=== PATIENT | female | born 1990 | race Caucasian/White ===

== ENCOUNTER → 2016-11-13 | Outpatient (CLI) | payer OTHER ==
[~2016-11-13] MED LIST: ACET-1256 PO; LEVO112T4 PO; PEDICHW50 PO; XNX25
--- NOTE | 2016-11-13 10:49 | Discharge Instructions ---
Discharge Instructions Procedure Procedure Date: Nov 13, 2016. Reason for visit: Thyroid Nodule. Discharge Discharge Date: Nov 13, 2016. Discharge Diagnosis: same Instructions Activity Recommendations: No limitations Return to School/Work: no limitations Recommended Home Diet: Resume Previous Diet Provider Instructions: ACTIVITY RECOMMENDATIONS: * Rest today. * Resume regular activity in one day. MEDICATIONS: * May take Tylenol or Ibuprofen as needed for pain. DIET: * Resume previous diet. SPECIAL CARE INSTRUCTIONS: Call your doctor if: * Temperature above 101 degrees F. * Pain not relieved by pain medicine ordered. * Increased drainage or redness from incision. * Notify your doctor with any questions or concerns. Call your doctor or go to the nearest Emergency Department if you experience: * Increased chest pain or shortness of breath. FOLLOW UP VISIT: Follow-up with Referring Physician as scheduled. Allergies Coded Allergies: Cephalosporins (Verified Allergy, Intermediate, RASH or N/V, 08/12/16) Latex (Verified Allergy, Mild, RASH, 08/12/16) Penicillins (Verified Allergy, Mild, Rash or N/V, 08/12/16) Antonio Kemp Recommendations: Call your doctor if: * Temperature above 101 degrees * Pain not relieved by pain medicine ordered * There is increased drainage or redness from any incision * You have any unanswered questions or concerns. Your Doctors Instructions noted above were prepared by provider Skip Benavides. Patient Signature Section: Patient Instructions Signature Page Isaura Louis Patient (or Guardian) Signature/Date: I have read and understand the instructions given to me by my caregivers. Caregiver/RN/Doctor Signature/Date: The above-named patient and/or guardian has received patient instructions on this date. + Original Patient Signature Page (only) stays with chart. Please make copy for patient.
--- NOTE | 2016-11-13 11:02 | DIAGNOSTIC IMAGING REPORT ---
ULTRASOUND-GUIDED FINE-NEEDLE ASPIRATION OF A LEFT ISTHMUS THYROID NODULE HISTORY: Left thyroid nodule. E04.1 Thyroid nodule COMPARISON: Thyroid ultrasound 03/25/2016 PROCEDURE: Written informed consent was obtained. The neck was prepped and draped in the usual sterile fashion. 1% lidocaine was used for local anesthesia. A total of 2 passes using a 25-gauge needle were made through left isthmus thyroid nodule under ultrasound guidance. Note, the nodule has decreased in size and currently measures 1 cm. Specimens were given to the on-site pathologist who determined adequate tissue for diagnosis. The patient tolerated the procedure well. There were no immediate locations. IMPRESSION: Successful ultrasound-guided fine-needle aspiration of a left isthmus thyroid nodule. Electronically signed by: Skip Benavides M.D. 11/13/2016 11:00 AM Dictated Date/Time: 11/13/2016 10:59 AM
== END | disposition home or self-care (01) ==
LOC: C.ULTR 09:33
PROVIDERS: ATTEND Internal Medicine Endocrinology, Diabetes & Metabolism
DX: E04.1 Nontoxic single thyroid nodule (principal)

== ENCOUNTER 2017-02-24 06:56 | Inpatient (IN) | payer OTHER ==
[2017-01-27 09:42] VITALS: BMI 36.0
[2017-01-27 10:24] LABS: BASO % 0.4 %; BASO ABS # 0.02 K/uL (0-0.2); COMPLETE YES; EOS % 0.7 %; HEMATOCRIT 40.8 % (37-47); IG% 0.2 %; LYMPH % 45.4 %; LYMPH ABS # 2.53 K/uL (1.2-3.4); MEAN CELL VOLUME 86.4 fL (80-100); MEAN CORPUSCULAR HEMOGLOBIN 29.4 pg (25-34); MEAN CORPUSCULAR HGB CONC 34.1 g/dl (32-36); MEAN PLATELET VOLUME 11.4 fL (7.4-10.4); MONO % 6.6 %; NEUT % 46.7 %; PLATELET COUNT 233 K/uL (130-400); RED BLOOD COUNT 4.72 M/uL (4.2-5.4); WHITE BLOOD COUNT 5.57 K/uL (4.8-10.8)
[2017-01-27 10:56] LABS: BUN/CREATININE RATIO 14.3 (10-20); CALCIUM 9.1 mg/dl (8.5-10.1); CREATININE 0.79 mg/dl (0.60-1.20); POTASSIUM 4.1 mmol/L (3.5-5.1)
[2017-02-24] VITALS (7 sets, daily range): BP systolic 118–163; BP diastolic 71–85; PULSE 56–97; TEMP 36.5–36.8; O2SAT 97–99; Ht 177.8 cm; Wt 115.0 kg
[~2017-02-24] VITALS: Ht 177.8 cm; Wt 115.0 kg
[~2017-02-24 06:56] MED LIST changes: +ACETAMINOPHEN 1000 MG/100 ML IV IV ONE; +CLINDAMYCIN IV 900 MG in DEXTROSE 5% ADD-VANTAGE 100ML 100 ML IV SCH; +DEXAMETHASONE SOD INJ 4 MG/ML VIAL ONE; +FENTANYL CITRATE INJ 50 MCG/1 ML 2 ML VIAL ONE; +GLYCOPYRROLATE INJ 0.2 MG/ML VIAL ONE; +LACTATED RINGER'S 1000ML 1,000 ML IV SCH; -LEVO112T4 PO; +LIDOCAINE HCL 2% 2 ML VIAL (20MG/ML) ONE; +MIDAZOLAM HCL 1 MG/ML 2ML VIAL ONE; +NEOSTIGMINE METHYLSULFATE 5 MG/5 ML SYR ONE; +ONDANSETRON INJ 2 MG/ML 2 ML VIAL ONE; -PEDICHW50 PO; +PROPOFOL IV EMULSION 10 MG/ML 20 ML VIAL IV ONE; +ROCURONIUM BROMIDE 10 MG/ML 5 ML VIAL ONE; +SUCCINYLCHOLINE CHLORIDE 20 MG/ML 10 ML VIAL IV ONE; -XNX25
[2017-02-24] MEDS ORDERED: XNX25 (07:07)
--- NOTE | 2017-02-24 07:10 | History & Physical Bridge Note ---
H&P Re-Evaluation Bridge Note: I have examined the patient, reviewed the History & Physical and in the interval since the performance of the History & Physical I have noted the following changes of clinical significance: No changes noted
--- NOTE | 2017-02-24 07:12 | History and Physical ---
History & Physical Date Feb 24, 2017. Chief Complaint SUSPICIOUS THYROID ISTHMUS NODULE History of Present Illness The patient is a 26 year old female with complaints of 1.7CM SOLID THYROID ISTHMUS NODULE WITH FNA SHOWING SUSPICIOUS FOLLICULAR LESION. Past Medical/Surgical History Medical Problems: (1) Vaginal bleeding during , antepartum PSH: S/P Additional History Hepatic Disease: No Endocrine Disorder: No Kidney Disease: No Hypertension: No Heart Disease: No Bleeding Tendencies: No Infectious Diseases: No Allergies Coded Allergies: Cephalosporins (Verified Allergy, Intermediate, RASH or N/V, 02/24/17) Latex (Verified Allergy, Mild, RASH, 02/24/17) Penicillins (Verified Allergy, Mild, Rash or N/V, 02/24/17) Home Medications Scheduled Acetaminophen (Tylenol), 1,000 MG PO PRN Miscellaneous Medications Alprazolam (Alprazolam) Physical Examination Skin: warm/dry, no rash Eyes: normal inspection, EOMI, sclerae normal ENT: normal ENT inspection, pharynx normal Head: normocephalic, atraumatic Neck: supple, no adenopathy, trachea midline Respiratory/Chest: lungs clear, normal breath sounds, no respiratory distress Cardiovascular: regular rate, rhythm, no edema, no murmur Diagnosis SUSPICIOUS THYROID ISTHMUS NODULE Plan of Treatment TOTAL THYROIDECTOMY
[2017-02-24] MEDS ORDERED: LIDOCAINE/EPINEPHRINE 1% 20 ML VIAL ONE (07:38)
[2017-02-24] MEDS ORDERED: THROMBIN 5000 UNITS KIT ONE (07:38)
[2017-02-24] MEDS ORDERED: BACITRACIN OINT 15 GM TUBE ONE (07:39)
[2017-02-24 07:43] LABS: PREG INTERNAL NEGATIVE QC NEG CLEAR BACKGROUND; PREG INTERNAL POSITIVE QC POS CONTROL LINE
[2017-02-24] MEDS ORDERED: FENTANYL CITRATE INJ 50 MCG/1 ML 2 ML VIAL ONE (08:31)
[2017-02-24] MEDS ORDERED: ONDANSETRON INJ 2 MG/ML 2 ML VIAL ONE ×2 (08:47→11:00)
[2017-02-24] MEDS ORDERED: ROCURONIUM BROMIDE 10 MG/ML 5 ML VIAL ONE (08:47)
[2017-02-24] MEDS ORDERED: EpHEDrine SULFATE 50MG/5ML SYR ONE (08:56)
[2017-02-24] MEDS ORDERED: SURGICEL ABSORB HEMOSTAT 2IN X 14IN TOP ONE (09:56)
[2017-02-24] MEDS ORDERED: LACTATED RINGER'S 1000ML 1,000 ML IV SCH (10:02)
--- NOTE | 2017-02-24 10:02 | [facility] Operative Report ---
Operative Report Operative Date Feb 24, 2017. Pre-Operative Diagnosis Suspicious Thyroid Isthmus Nodule Post-Operative Diagnosis SAME Procedure(s) Performed TOTAL THYROIDECTOMY Surgeon Dr. Neal Cage Air Intercept Controller Surgeon(s) Marina Casey PA-C Estimated Blood Loss 10ML Findings ~1.7CM THYROID ISTHMUS NODULE; MILD MULTINODULAR GOITER Specimens A: Thyroid- double stitch- right superior pole; single stitch- left superior pole. I attest to the content of the Intraoperative Record and any orders documented therein. Any exceptions are noted below.
--- NOTE | 2017-02-24 10:10 | Discharge Instructions ---
Discharge Instructions Date of Service Feb 24, 2017. Admission Reason for Admission: Thyroid Nodule Discharge Discharge Diagnosis / Problem: SAME Discharge Goals Goal(s): Therapeutic intervention Activity Recommendations Activity Limitations: as noted below 1. LIGHT ACTIVITY FOR 2WEEKS 2. NO DRIVING WHILE ON [place] 3. KEEP INCISION DRY FOR 1WEEK . Current Hospital Diet Patient's current hospital diet: Discharge Diet Recommended Diet: Regular Diet Procedures Procedures Performed: Total Thyroidectomy Pending Studies Studies pending at discharge: no Medical Emergencies . Who to Call and When: Medical Emergencies: If at any time you feel your situation is an emergency, please call 911 immediately. . Non-Emergent Contact Non-Emergency issues call your: Surgeon . . "Provider Documentation" section prepared by Neal Cage. . VTE Core Measure Inpt VTE Proph given/why not?: SCD's
[2017-02-24] MEDS ORDERED: ONDANSETRON INJ 2 MG/ML 2 ML VIAL IV PRN ×2 (10:15→10:45)
[2017-02-24] MEDS ORDERED: HYDROmorphone INJ 1 MG/ML SYR IV PRN (10:45)
[2017-02-24] MEDS ORDERED: FLUMAZENIL 0.1 MG/1 ML 10 ML VIAL IV PRN (10:45)
[2017-02-24] MEDS ORDERED: EpHEDrine SULFATE INJ 50 MG/ML AMP IV PRN (10:45)
[2017-02-24] MEDS ORDERED: LABETALOL HCL IV 5 MG/ML 20ML IV PRN (10:45)
[2017-02-24] MEDS ORDERED: PROMETHAZINE HCL INJ 12.5 MG in SODIUM CHLORIDE 0.9% 50ML 50 ML IV PRN (10:45)
[2017-02-24] MEDS ORDERED: ATROPINE SULFATE 0.1 MG/ML 5ML SYR IV PRN (10:45)
[2017-02-24] MEDS ORDERED: NALOXONE HCL 0.4 MG/1 ML VIAL/CARP IV PRN (10:45)
[2017-02-24] MEDS ORDERED: HYDROmorphone INJ 1 MG/ML SYR ONE (10:51)
--- NOTE | 2017-02-24 10:53 | OPERATIVE REPORT ---
DATE OF OPERATION: 02/24/2017 PREOPERATIVE DIAGNOSIS: Suspicious thyroid isthmus nodule. POSTOPERATIVE DIAGNOSIS: Suspicious thyroid isthmus nodule. PROCEDURE: Total thyroidectomy. SURGEON: Neal Cage M.D. MONEY POSITION OFFICER: Marina Casey PA-C. ESTIMATED BLOOD LOSS: 10 mL. FINDINGS: Soft approximately 1.7 cm thyroid isthmus nodule. SPECIMENS: Total thyroidectomy for permanent pathologic specimen. DRAINS: None. COMPLICATIONS: None. INDICATIONS FOR THE PROCEDURE: The patient is a 26-year-old female who was found to have an enlarging thyroid nodule while and for which a fine needle aspiration biopsy showed a follicular lesion with the inability to tell whether or not it was an adenoma versus carcinoma. There were some atypical cells. Thyroid surgery was recommended. After discussing all the options with the patient, she opted for total thyroidectomy. She presents for the above-mentioned procedure on an inpatient elective basis. DESCRIPTION OF PROCEDURE: After informed consent had been obtained from the patient, the patient was wheeled in the operating room and placed on the operating table in the supine position. Monitors were placed. After induction of general endotracheal anesthesia with a size 7 nerve integrity monitor endotracheal tube the patient's head and neck were gently extended and the marking pen was used to outline the planned 6 cm incision in the natural skin crease 2 fingerbreadths above the level of clavicles. A total of 3 mL of 1% lidocaine with 1:100,000 epinephrine was used to inject the skin and subcutaneous tissues overlying the planned incision site. The skin of the neck and chest were then prepped and draped in usual sterile fashion. A #15 scalpel was then used to make the incision through the skin, subcutaneous tissue, and platysma. Subplatysmal flaps were raised superiorly to the level of thyroid notch and inferiorly to the level of the clavicles. The median raphe of the strap muscles was divided using Bovie electrocautery. The strap muscles were retracted laterally and the right thyroid lobe was first addressed. The middle thyroid vein as well as superior and inferior thyroid vascular pedicles were divided adjacent to the thyroid capsule using a Harmonic scalpel. Dissection was carried lateral to medial with care to identify and preserve a candidate for the right recurrent laryngeal nerve as well as superior and inferior parathyroid glands. The left side was then addressed in a similar fashion. The thyroid gland was from the trachea at Martinez's ligament using a Harmonic scalpel. Of note, the dissection was quite difficult and there was some dense fibrosis involving the lateral aspect of the thyroid lobes near the areas of the recurrent laryngeal nerves, especially on the left hand side. Orienting sutures were placed on the thyroidectomy specimen which was sent off for permanent pathological assessment. The wound was copiously irrigated and suctioned. Bipolar electrocautery was used to achieve adequate hemostasis. Hemostasis was confirmed with a Valsalva maneuver. Small pieces of Surgicel were placed in the bilateral tracheoesophageal grooves followed by topical spray thrombin. The strap muscles were then reapproximated in the midline using a simple running interlocked 3-0 Vicryl suture. The platysma was then closed with several deep 4-0 Monocryl sutures. The skin was then closed with a simple running subcuticular 5-0 Monocryl suture. The incision was cleansed and dried. Dermabond was applied to the incision. This marked the end of the case. The patient tolerated the procedure well. There were no apparent complications. The patient was extubated and transferred to recovery room in stable condition. I attest to the content of the Intraoperative Record and any orders documented therein. Any exceptio ns are noted below.
--- NOTE | 2017-02-24 11:15 | Anesthesiology Progress Note ---
Anesthesia Post Op Note Date & Time Feb 24, 2017 at 11:14 Vital Signs Pain Intensity: 4 Vital Signs Past 12 Hours Date Time Temp Pulse Resp B/P Pulse Ox O2 Delivery O2 Flow Rate FiO2 02/24/17 11:10 72 19 126/68 95 Room Air 02/24/17 11:00 85 19 126/67 95 Room Air 02/24/17 10:50 80 22 129/77 97 Mask 10 02/24/17 10:40 74 18 151/85 100 Mask 10 02/24/17 10:31 36.3 77 17 154/79 99 Mask 10 02/24/17 07:09 36.7 97 20 163/85 99 Room Air Notes Mental Status: alert / awake / arousable, participated in evaluation Pt Amnestic to Procedure: Yes Nausea / Vomiting: adequately controlled Pain: adequately controlled Airway Patency, RR, SpO2: stable & adequate BP & HR: stable & adequate Hydration State: stable & adequate Anesthetic Complications: no major complications apparent
[2017-02-24] MEDS: HYDROCODONE/ACETAMOPHEN 5/325MG TAB PO PRN ×2 (15:45→17:10)
[2017-02-24] MEDS ORDERED: ALPRAZOLAM 0.25 MG TAB PO PRN (16:00)
[2017-02-24 16:26] LABS: MAGNESIUM 2.2 mg/dl (1.8-2.4); PHOSPHORUS 3.1 mg/dl (2.5-4.9)
[2017-02-24] MEDS ORDERED: NURSING VERBAL MED ORDER ONE (19:00)
[2017-02-24 22:40] LABS: CALCIUM 9.3 mg/dl (8.5-10.1); MAGNESIUM 2.1 mg/dl (1.8-2.4); PHOSPHORUS 3.4 mg/dl (2.5-4.9)
[2017-02-25 00:03] VITALS: BP 137/81; PULSE 76; TEMP 36.8; O2SAT 100
[2017-02-25] MEDS: HYDROCODONE/ACETAMOPHEN 5/325MG TAB PO PRN ×3 (00:04→08:33)
[2017-02-25 04:00] VITALS: BP 112/66; PULSE 65; TEMP 36.8; O2SAT 98
[2017-02-25 04:56] LABS: CALCIUM 8.9 mg/dl (8.5-10.1); MAGNESIUM 2.2 mg/dl (1.8-2.4); PHOSPHORUS 4.4 mg/dl (2.5-4.9)
[2017-02-25] MEDS ORDERED: LEVOTHYROXINE 175 MCG TAB PO SCH (06:00)
[2017-02-25 07:00] VITALS: BP 106/68; PULSE 56; TEMP 36.6; O2SAT 99
--- NOTE | 2017-02-25 07:06 | ENT PROGRESS NOTE ---
DATE: 02/25/2017 The patient is postoperative day #1 status post total thyroidectomy for a suspicious thyroid nodule. She has had no postoperative problems. She did complain of some right hand tingling yesterday, but all of her laboratory examinations have been unremarkable. Her calcium has ranged from 8.9-9.3. She is currently asymptomatic. She is not having much pain. She has a normal voice and is tolerating her diet. She is afebrile and her vital signs are stable. Her voice is normal. Her incision is clean, dry and intact, with no evidence of hematoma. The patient will be discharged to home. Follow up in the office next Wednesday for incision check and pathology review.
--- NOTE | 2017-02-25 07:09 | DISCHARGE SUMMARY ---
ADMISSION DIAGNOSIS: Suspicious thyroid nodule. DISCHARGE DIAGNOSIS: Suspicious thyroid nodule status post total thyroidectomy. HOSPITAL COURSE: The patient is a 26-year-old female who underwent total thyroidectomy on 02/24/2017 for suspicious thyroid isthmus nodule. Postoperatively she had no complications and was discharged to home on postoperative day 1 with new medications of [place] 5 mg/325 mg 1-2 tabs p.o. q.4h p.r.n. with 40 tablets given as well as Synthroid 175 mcg every morning. She is to followup in my office next Wednesday. She should call the office if she develops any numbness or tingling around her lips, fingers, or toes and/or involuntary muscle spasms or cramps. She is to keep her incision dry for one week.
[2017-02-25 07:35] VITALS: BP 112/66; PULSE 65; TEMP 36.8; O2SAT 98
== END 2017-02-25 10:10 | disposition home or self-care (01) | DRG 627 ==
LOC: ENRESERVDT → ENRESERVTM → C.ACU 06:56 → C.MSW 10:08
PROC: 0GTK0ZZ Resection of Thyroid Gland, Open Approach (ICD-10-PCS; principal; 2017-02-24 07:15)
DX: E04.2 Nontoxic multinodular goiter (principal); R20.2 Paresthesia of skin; F41.9 Anxiety disorder, unspecified; E66.9 Obesity, unspecified; Z68.36 Body mass index [BMI] 36.0-36.9, adult; Z87.891 Personal history of nicotine dependence; Z79.899 Other long term (current) drug therapy

== ENCOUNTER → 2017-03-02 | Outpatient (CLI) | payer OTHER ==
[~2017-03-02] MED LIST changes: -ACETAMINOPHEN 1000 MG/100 ML IV IV ONE; -CLINDAMYCIN IV 900 MG in DEXTROSE 5% ADD-VANTAGE 100ML 100 ML IV SCH; -DEXAMETHASONE SOD INJ 4 MG/ML VIAL ONE; -FENTANYL CITRATE INJ 50 MCG/1 ML 2 ML VIAL ONE; -GLYCOPYRROLATE INJ 0.2 MG/ML VIAL ONE; -LACTATED RINGER'S 1000ML 1,000 ML IV SCH; +LEVO112T4 PO; -LIDOCAINE HCL 2% 2 ML VIAL (20MG/ML) ONE; -MIDAZOLAM HCL 1 MG/ML 2ML VIAL ONE; -NEOSTIGMINE METHYLSULFATE 5 MG/5 ML SYR ONE; -ONDANSETRON INJ 2 MG/ML 2 ML VIAL ONE; -PROPOFOL IV EMULSION 10 MG/ML 20 ML VIAL IV ONE; -ROCURONIUM BROMIDE 10 MG/ML 5 ML VIAL ONE; -SUCCINYLCHOLINE CHLORIDE 20 MG/ML 10 ML VIAL IV ONE; +XNX25
[2017-03-02 17:20] LABS: ALKALINE PHOSPHATASE 102 U/L (45-117); ALT/SGPT 29 U/L (12-78); AST/SGOT 11 U/L (15-37); BLOOD UREA NITROGEN 10 mg/dl (7-18); BUN/CREATININE RATIO 12.3 (10-20); CARBON DIOXIDE 27 mmol/L (21-32); CHLORIDE 107 mmol/L (98-107); CREATININE 0.78 mg/dl (0.60-1.20); GLUCOSE 91 mg/dl (70-99); SODIUM 141 mmol/L (136-145)
[2017-03-02 17:31] LABS: ALB/GLOB RATIO 1.1 (0.9-2)
== END | disposition home or self-care (01) ==
LOC: C.LAB1850 15:41
PROVIDERS: ATTEND Physician Assistant
DX: E04.1 Nontoxic single thyroid nodule (principal); R07.89 Other chest pain

== ENCOUNTER → 2017-04-27 | Outpatient (CLI) | payer OTHER ==
[2017-04-27 13:56] LABS: THYROID STIMULATING HORMONE 0.011 uIu/ml (0.300-4.500)
== END | disposition home or self-care (01) ==
LOC: C.LAB1850 12:28
PROVIDERS: ATTEND Internal Medicine Endocrinology, Diabetes & Metabolism
DX: E89.0 Postprocedural hypothyroidism (principal)

== ENCOUNTER 2017-04-30 09:57 | Emergency (ER) | payer OTHER ==
[~2017-04-30] VITALS: Ht 177.8 cm; Wt 104.6 kg
[~2017-04-30 09:57] MED LIST changes: -LEVO112T4 PO
[2017-04-30 09:58] VITALS: TEMP 37; Ht 177.8 cm; Wt 104.6 kg
[2017-04-30 10:47] LABS: BASO % 0.3 %; BASO ABS # 0.02 K/uL (0-0.2); COMPLETE YES; EOS % 0.3 %; HEMATOCRIT 43.7 % (37-47); IG% 0.2 %; LYMPH % 29.2 %; LYMPH ABS # 1.88 K/uL (1.2-3.4); MEAN CELL VOLUME 85.7 fL (80-100); MEAN CORPUSCULAR HEMOGLOBIN 29.8 pg (25-34); MEAN CORPUSCULAR HGB CONC 34.8 g/dl (32-36); MEAN PLATELET VOLUME 11.9 fL (7.4-10.4); PLATELET COUNT 218 K/uL (130-400); WHITE BLOOD COUNT 6.43 K/uL (4.8-10.8)
[2017-04-30 10:54] LABS: BUN/CREATININE RATIO 9.2 (10-20); CALCIUM 10.1 mg/dl (8.5-10.1); CREATININE 0.91 mg/dl (0.60-1.20); POTASSIUM 3.7 mmol/L (3.5-5.1)
[2017-04-30 10:57] LABS: ALB/GLOB RATIO 1.2 (0.9-2)
[2017-04-30] MEDS ORDERED: SODIUM CHLORIDE 0.9% 1000ML 1,000 ML IV STA (10:58)
[2017-04-30 11:01] LABS: URINE APPEARANCE CLEAR (CLEAR); URINE BILIRUBIN NEG (NEG); URINE COLOR YELLOW; URINE NITRITE NEG (NEG); UROBILINOGEN NEG (NEG); ZZUR CULT IF INDIC CLEAN CATCH NO
[2017-04-30 11:06] LABS: MANUAL MICROSCOPIC REQUIRED? NO; REVIEW REQ? NO
[2017-04-30 11:13] LABS: PREG INTERNAL NEGATIVE QC NEG CLEAR BACKGROUND; PREG INTERNAL POSITIVE QC POS CONTROL LINE
--- NOTE | 2017-04-30 11:19 | EMERGENCY ROOM VISIT NOTE ---
History Report prepared by Herbert: Xochilt Gomes Under the Supervision of: Dr. Jerome Caicedo M.D. First contact with patient: 10:47 Chief Complaint: ABDOMINAL PAIN Stated Complaint: CHEST PAINS,ELBOW PAIN,HAND TINGLING Nursing Triage Summary: epigastric pain mostly at night for the past couple months. seems to be worse when eating certian foods. was dx with anxiety but unable to tolerate the xanax she was perscribed. History of Present Illness The patient is a 26 year old female who presents to the Emergency Room with complaints of intermittent lower left sided chest pain beginning a couple of months ago. The patient states that she had her thyroid removed 2 months ago and has been changing her medication levels. She complains of feeling like her heart is racing and hand tingling that began last night. The patient denies any pain or swelling in the legs. She notes that she called her doctor today and she was told that if she had any arm pain or hand tingling to come into the ED. The patient reports that she was diagnosed with anxiety but has not been able to tolerate her Xanax. Source of History: patient, parent (the when6) Onset: a few months ago Position: chest Timing: intermittent Note: She complains of feeling like her heart is racing and hand tingling that began last night. The patient denies any pain or swelling in the legs. Review of Systems See HPI for pertinent positives & negatives. A total of 10 systems reviewed and were otherwise negative. Past Medical & Surgical Medical Problems: (1) Vaginal bleeding during , antepartum Surgical Problems: (1) S/P total thyroidectomy Old medical records were reviewed. Nurse's notes were reviewed and I agree with. Family History Diabetes mellitus FH: gallbladder disease FH: heart disease Hypertension Social History Smoking Status: Former Smoker Alcohol Use: occasionally Marital Status: Housing Status: lives with family Occupation Status: employed Current/Historical Medications Scheduled Levothyroxine Sodium (Levothyroxine Sodium), 1 TAB PO DAILYBB Allergies Coded Allergies: Amoxicillin (Unverified Allergy, Severe, rash, 04/30/17) Cephalexin (Unverified Allergy, Severe, rash, 04/30/17) Clavulanic Acid (Unverified Allergy, Severe, rash, 04/30/17) Cephalosporins (Verified Allergy, Intermediate, RASH or N/V, 04/30/17) Latex (Verified Allergy, Mild, RASH, 04/30/17) Penicillins (Verified Allergy, Mild, Rash or N/V, 04/30/17) Physical Exam Vital Signs Date Time Temp Pulse Resp B/P (MAP) Pulse Ox O2 Delivery O2 Flow Rate FiO2 04/30/17 13:22 77 18 135/79 100 04/30/17 11:10 84 16 155/83 100 Room Air 04/30/17 09:58 37.0 81 18 154/81 98 Room Air Physical Exam General: Well developed well nourished in no acute distress, breathing comfortably on room air. Normal speech. Non-ill appearing young female. HEENT: Normal cephalic atraumatic. Pupils are equal round and reactive to light. Extraocular movements are intact. Oropharynx is pink with moist mucous membranes. No swelling of the mouth lips or tongue. Neck: Supple with a midline trachea. No meningeal signs or stiffness, no JVD or bruits. No Stridor. Scar from a previous thyroidectomy. Chest: Clear to auscultation bilaterally. No wheezes or rhonchi. No increased work of breathing. Heart: regular rate and rhythm. Abdomen: Soft nontender, nondistended without rebound guarding or rigidity. Extremities: No cyanosis clubbing or edema. No calf tenderness or assymetry Spine/Back. Non tender to palpation. No CVA tenderness Skin: Good turgor without rashes. Neurologic exam: Cranial nerves two through 12 are intact. Motor and sensation are intact and symmetrical throughout. Medical Decision & Procedures ER Provider Diagnostic Interpretation: X-ray results as stated below per interpretation by me and the radiologist: CHEST ONE VIEW PORTABLE FINDINGS: The cardiac and mediastinal contours are normal. There is no evidence of focal pulmonary consolidation. There is no evidence of failure. 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 IMPRESSION: No active disease in the chest. Electronically signed by: Nash Canales M.D. 04/30/2017 11:46 AM Dictated Date/Time: 04/30/2017 11:45 AM Laboratory Results 04/30/17 10:10 Red Blood Count 5.10, Mean Corpuscular Volume 85.7, Mean Corpuscular Hemoglobin 29.8, Mean Corpuscular Hemoglobin Concent 34.8, Mean Platelet Volume 11.9, Neutrophils (%) (Auto) 63.0, Lymphocytes (%) (Auto) 29.2, Monocytes (%) (Auto) 7.0, Eosinophils (%) (Auto) 0.3, Basophils (%) (Auto) 0.3, Neutrophils # (Auto) 4.05, Lymphocytes # (Auto) 1.88, Monocytes # (Auto) 0.45, Eosinophils # (Auto) 0.02, Basophils # (Auto) 0.02 04/30/17 10:10 Test 04/30/17 10:10 White Blood Count 6.43 K/uL (4.8-10.8) Red Blood Count 5.10 M/uL (4.2-5.4) Hemoglobin 15.2 g/dL (12.0-16.0) Hematocrit 43.7 % (37-47) Mean Corpuscular Volume 85.7 fL (80-100) Mean Corpuscular Hemoglobin 29.8 pg (25-34) Mean Corpuscular Hemoglobin Concent 34.8 g/dl (32-36) Platelet Count 218 K/uL (130-400) Mean Platelet Volume 11.9 fL (7.4-10.4) Neutrophils (%) (Auto) 63.0 % Lymphocytes (%) (Auto) 29.2 % Monocytes (%) (Auto) 7.0 % Eosinophils (%) (Auto) 0.3 % Basophils (%) (Auto) 0.3 % Neutrophils # (Auto) 4.05 K/uL (1.4-6.5) Lymphocytes # (Auto) 1.88 K/uL (1.2-3.4) Monocytes # (Auto) 0.45 K/uL (0.11-0.59) Eosinophils # (Auto) 0.02 K/uL (0-0.5) Basophils # (Auto) 0.02 K/uL (0-0.2) RDW Standard Deviation 41.4 fL (36.4-46.3) RDW Coefficient of Variation 13.2 % (11.5-14.5) Immature Granulocyte % (Auto) 0.2 % Immature Granulocyte # (Auto) 0.01 K/uL (0.00-0.02) D-Dimer 280 ug/L FEU (0-500) Urine Color YELLOW Urine Appearance CLEAR (CLEAR) Urine pH 7.0 (4.5-7.5) Urine Specific [place] 1.010 (1.000-1.030) Urine Protein NEG (NEG) Urine Glucose (UA) NEG (NEG) Urine Ketones NEG (NEG) Urine Occult Blood 1+ (NEG) Urine Nitrite NEG (NEG) Urine Bilirubin NEG (NEG) Urine Urobilinogen NEG (NEG) Urine Leukocyte Esterase NEG (NEG) Urine WBC (Auto) 1-5 /hpf (0-5) Urine RBC (Auto) 0-4 /hpf (0-4) Urine Hyaline Casts (Auto) 0 /lpf (0-5) Urine Epithelial Cells (Auto) 10-20 /lpf (0-5) Urine Bacteria (Auto) NEG (NEG) Anion Gap 9.0 mmol/L (3-11) Est Creatinine Clear Calc Drug Dose 120.5 ml/min Estimated GFR () 99.5 Estimated GFR (Non- 85.9 BUN/Creatinine Ratio 9.2 (10-20) Calcium Level 10.1 mg/dl (8.5-10.1) Total Bilirubin 0.9 mg/dl (0.2-1) Direct Bilirubin 0.2 mg/dl (0-0.2) Aspartate Amino Transf (AST/SGOT) 10 U/L (15-37) Alanine Aminotransferase (ALT/SGPT) 25 U/L (12-78) Alkaline Phosphatase 98 U/L (45-117) Troponin I < 0.015 ng/ml (0-0.045) Total Protein 7.9 gm/dl (6.4-8.2) Albumin 4.4 gm/dl (3.4-5.0) Globulin 3.6 gm/dl (2.5-4.0) Albumin/Globulin Ratio 1.2 (0.9-2) Lipase 121 U/L (73-393) Thyroid Stimulating Hormone (TSH) 0.014 uIu/ml (0.300-4.500) Free Thyroxine 1.62 ng/dl (0.80-1.60) Thyroxine (T4) 11.5 mcg/dl (4.5-10.9) Human Chorionic Gonadotropin, Qual NEG (NEG) Laboratory studies as stated above per my review. Medications Administered Medications (Trade) Dose Ordered Sig/Helen Route Start Time Stop Time Status Last Admin Dose Admin Sodium Chloride 1,000 ml @ 999 mls/hr Q1H1M STAT IV 04/30/17 10:58 04/30/17 11:58 DC 04/30/17 10:58 999 MLS/HR ECG Indication: chest pain Rate (beats per minute): 80 Rhythm: normal sinus Findings: no acute ischemic change, no ectopy ED Course 1047: Past medical records reviewed. The patient was evaluated in room B5, and a complete history and physical examination were performed. 1058: Sodium Chloride 1000 ml @ 999 mls/hr IV. 1317: I updated and reevaluated the patient. She is doing well. 1331: Upon reevaluation, the patient is doing well. I discussed the results and treatment plan with the patient. She verbalized agreement of the treatment plan. The patient was discharged home. Medical Decision Differential diagnosis includes arrhythmia, acute coronary syndrome, PE, CHF, pneumothorax, thyroid disease. Blood pressure Screening: Patient was found to have normal blood pressure on screening and does not require follow-up. Medication Reconciliation: I attest that I have personally reviewed the patient' s current medication list. This patient comes in as described above. She has some vague chest pain that has been going off about 2 months. She did have her thyroid removed in the been adjusting her thyroid medication . She's had no palpitations or arrhythmia per se but mostly just intermittent vague chest pain. She looks well on exam. IV access established. EKG was obtained as well as chest x-ray. She has nothing to suggest acute coronary syndrome or significant arrhythmia. She has no findings to suggest congestive heart failure ,pneumonia or pneumothorax. Her free T4 is actually coming down from before the just readjusted her first. She has no electrolyte or metabolic abnormalities. Could be related to her thyroid of the just readjusted her medications. There is nothing to suggest PE and her d-dimer is within normal limits she is not . A may be more musculoskeletal even she should she'll be discharged home she will return if worsening symptoms, fever chills, any new problems concerns. She was happy with the plan and discharged to home. Impression Primary Impression: Precordial chest pain Scribe Attestation The scribe's documentation has been prepared under my direction and personally reviewed by me in its entirety. I confirm that the note above accurately reflects all work, treatment, procedures, and medical decision making performed by me. Departure Information Dispostion Home / Self-Care Referrals RV. Silva MD (PCP) Forms HOME CARE DOCUMENTATION FORM, IMPORTANT VISIT INFORMATION Patient Instructions My [facility] [place] [employer] Additional Instructions rest. Drink plenty of fluids. Return if: Increasing pain, worsening symptoms, shortness breath, any new problems or concerns. Follow-up with your your doctor this coming week for recheck and return here over the weekend if symptoms worsen
[2017-04-30] MEDS ORDERED: LEVO112T4 PO (11:25)
[2017-04-30 11:46] LABS: ALKALINE PHOSPHATASE 98 U/L (45-117); ALT/SGPT 25 U/L (12-78); AST/SGOT 10 U/L (15-37); THYROID STIMULATING HORMONE 0.014 uIu/ml (0.300-4.500)
--- NOTE | 2017-04-30 11:47 | DIAGNOSTIC IMAGING REPORT ---
CHEST ONE VIEW PORTABLE CLINICAL HISTORY: Atypical chest pain COMPARISON STUDY: No previous studies for comparison. FINDINGS: The cardiac and mediastinal contours are normal. There is no evidence of focal pulmonary consolidation. There is no evidence of failure. 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 IMPRESSION: No active disease in the chest. Electronically signed by: Nash Canales M.D. 04/30/2017 11:46 AM Dictated Date/Time: 04/30/2017 11:45 AM
[2017-04-30 13:22] VITALS: BP 135/79; PULSE 77; O2SAT 100
== END 2017-04-30 13:46 | disposition home or self-care (01) ==
LOC: C.EDB 09:58
DX: R07.2 Precordial pain (principal); Z98.890 Other specified postprocedural states; F41.9 Anxiety disorder, unspecified; E89.0 Postprocedural hypothyroidism; Z79.899 Other long term (current) drug therapy; Z83.3 Family history of diabetes mellitus; Z82.49 Family history of ischemic heart disease and other diseases of the circulatory system; Z87.891 Personal history of nicotine dependence

== ENCOUNTER → 2017-06-09 | Outpatient (CLI) | payer OTHER ==
[~2017-06-09] MED LIST changes: -ACET-1256 PO; +LEVO112T4 PO; -XNX25
[2017-06-09 10:03] LABS: CHOLESTEROL/HDL RATIO 2.9; THYROID STIMULATING HORMONE 0.951 uIu/ml (0.300-4.500)
== END | disposition home or self-care (01) ==
LOC: C.LAB1850 07:21
PROVIDERS: ATTEND Internal Medicine Endocrinology, Diabetes & Metabolism
DX: E89.0 Postprocedural hypothyroidism (principal); I10 Essential (primary) hypertension

== ENCOUNTER → 2017-11-03 | Outpatient (CLI) | payer OTHER ==
[2017-11-03 17:38] LABS: BLOOD UREA NITROGEN 14 mg/dl (7-18); CALCIUM 9.6 mg/dl (8.5-10.1); CARBON DIOXIDE 30 mmol/L (21-32); CREATININE 0.83 mg/dl (0.60-1.20); GLUCOSE 84 mg/dl (70-99); POTASSIUM 3.8 mmol/L (3.5-5.1); SODIUM 138 mmol/L (136-145)
== END | disposition home or self-care (01) ==
LOC: C.LAB1850 16:30
PROVIDERS: ATTEND Internal Medicine Endocrinology, Diabetes & Metabolism
DX: I10 Essential (primary) hypertension (principal); E89.0 Postprocedural hypothyroidism

== ENCOUNTER → 2018-01-10 | Outpatient (CLI) | payer OTHER | END | disposition home or self-care (01) | LOC: C.LAB1850 16:29 | PROVIDERS: ATTEND Internal Medicine Endocrinology, Diabetes & Metabolism | DX: C73 Malignant neoplasm of thyroid gland (principal); E89.0 Postprocedural hypothyroidism ==